=== PATIENT | female | born 1970 | race Caucasian/White ===

== ENCOUNTER 2022-01-22 06:41 | Day surgery (SDC) | payer MEDICAID ==
[2022-01-21 10:29] LABS: HCG,QUAL RESULT NEGATIVE (NEGATIVE)
[~2022-01-22] VITALS: Ht 165.1 cm; Wt 53.5 kg
[2022-01-22] MEDS ORDERED: SIMETHICONE 40 MG/0.6 ML ML ONE (07:31)
[2022-01-22] MEDS: fentaNYL CITRATE/PF 100 MCG/2 ML AMP ONE ×2 (08:27→08:48)
[2022-01-22] MEDS: MIDAZOLAM HCL 5 MG/5 ML VIAL ONE ×4 (08:27→08:49)
[2022-01-22 11:59] VITALS: BP_SYST 99
== END 2022-01-22 09:50 | disposition home or self-care (01) ==
LOC: SDS 06:41 → SMU 06:42 → SDS 09:50
PROVIDERS: ATTEND Internal Medicine
DX: Z12.11 Encounter for screening for malignant neoplasm of colon (principal); D12.3 Benign neoplasm of transverse colon; K57.30 Diverticulosis of large intestine without perforation or abscess without bleeding; K64.8 Other hemorrhoids; Z79.899 Other long term (current) drug therapy; Z20.822 Contact with and (suspected) exposure to COVID-19
CPT/HCPCS: 84703; 36415; 45385; 88305; 99152; U0003; G0378; J2250; J3010